=== PATIENT | female | born 2000 | race American Indian/Alaskan Native ===

== ENCOUNTER 2020-01-22 22:47 | Emergency (ER) | payer SELFPAY ==
[2020-01-22 23:08] VITALS: BP 108/71
[2020-01-23 00:10] LABS: Blood Urea Nitrogen 17 mg/dL (7-17); Calcium 9.4 mg/dL (8.4-10.2); Hemolysis Index 2
[2020-01-23 00:12] LABS: BUN/Creatinine Ratio 28
[2020-01-23 00:16] LABS: Basophils % (Auto) 0.4 % (0.0-1.8); Eosinophils # (Auto) 0.1 K/mm3 (0.0-0.4); Eosinophils % (Auto) 1.4 % (0.0-4.3); Mean Corpuscular HGB Conc 33 % (30-34); Mean Corpuscular Volume 86 fl (79-97); Monocytes # (Auto) 0.8 K/mm3 (0.0-0.8); Platelet Count 305 K/mm3 (140-440); Red Cell Distribution Width 18.2 % (13.2-15.2)
== END 2020-01-23 01:40 | disposition left against medical advice (07) ==
LOC: ED 22:47
DX: G40.909 Epilepsy, unspecified, not intractable, without status epilepticus (principal); Z53.21 Procedure and treatment not carried out due to patient leaving prior to being seen by health care provider
CPT/HCPCS: 36415; 80048; 84703; 85025